=== PATIENT | female | born 1985 | race African-American/Black ===

== ENCOUNTER 2021-06-12 14:18 | Outpatient (CLI) | payer OTHER | END 2021-06-12 15:38 | disposition home or self-care (01) | LOC: PRENATAL 14:18 | PROVIDERS: ATTEND Obstetrics & Gynecology Maternal & Fetal Medicine | DX: O35.0XX0 Maternal care for (suspected) central nervous system malformation in fetus, not applicable or unspecified (principal); O35.3XX0 Maternal care for (suspected) damage to fetus from viral disease in mother, not applicable or unspecified ==

== ENCOUNTER 2021-08-22 23:02 | Emergency (ER) | payer OTHER ==
[~2021-08-22] VITALS: Ht 170.2 cm; Wt 81.2 kg
[2021-08-22] MEDS ORDERED: PRENATAL + DHA1 EAC1 PO (23:32)
[2021-08-22] MEDS ORDERED: IRON236 MG PO (23:32)
[2021-08-23] MEDS ORDERED: MONISTAT 745 GM VAG (02:19)
== END 2021-08-23 02:25 ==
LOC: ER 23:02
DX: B37.3 Candidiasis of vulva and vagina (principal)

== ENCOUNTER 2021-09-04 14:15 | Outpatient (CLI) | payer OTHER ==
[~2021-09-04 14:15] MED LIST: IRON236 MG PO; MONISTAT 745 GM VAG; PRENATAL + DHA1 EAC1 PO
== END 2021-09-04 14:56 | disposition home or self-care (01) ==
LOC: PRENATAL 14:15
PROVIDERS: ATTEND Obstetrics & Gynecology Maternal & Fetal Medicine
DX: O26.849 Uterine size-date discrepancy, unspecified trimester (principal); O36.8199 Decreased fetal movements, unspecified trimester, other fetus; Z3A.32 32 weeks gestation of pregnancy

== ENCOUNTER 2021-10-10 13:15 | Inpatient (IN) | payer OTHER ==
[~2021-10-10] VITALS: Ht 170.2 cm; Wt 80.7 kg
[2021-10-23] MEDS ORDERED: IRON240 MG PO (06:42)
[2021-10-23] MEDS ORDERED: VALTREX1000 MG PO (06:43)
== END 2021-10-25 13:41 | disposition home or self-care (01) | DRG 807 ==
LOC: OB/GYN 10-23 05:24 → LDR 10-23 05:24 → OB/GYN 10-23 16:48 → SURH 10-24 13:15 → OB/GYN 10-25 13:41
PROVIDERS: ADMIT Student in an Organized Health Care Education/Training Program; ATTEND Student in an Organized Health Care Education/Training Program
PROC: 10E0XZZ Delivery of Products of Conception, External Approach (ICD-10-PCS; principal; 2021-10-23)
PROC: 0HQ9XZZ Repair Perineum Skin, External Approach (ICD-10-PCS; 2021-10-23)
PROC: 4A1HXCZ Monitoring of Products of Conception, Cardiac Rate, External Approach (ICD-10-PCS; 2021-10-23)
PROC: 3E033VJ Introduction of Other Hormone into Peripheral Vein, Percutaneous Approach (ICD-10-PCS; 2021-10-23)
DX: O70.0 First degree perineal laceration during delivery (principal); Z37.0 Single live birth; O99.820 Streptococcus B carrier state complicating pregnancy; Z3A.39 39 weeks gestation of pregnancy; Z20.822 Contact with and (suspected) exposure to COVID-19